=== PATIENT | female | born 1995 | race Caucasian/White ===

== ENCOUNTER 2020-11-23 00:04 | Emergency (ER) | payer BC ==
[~2020-11-23] VITALS: Ht 157.5 cm; Wt 57.2 kg
[2020-11-23] MEDS ORDERED: CLINDAMYCIN HC300 MG PO (02:49)
[2020-11-23] MEDS ORDERED: NAPROXEN375 MG PO (02:49)
[2020-11-23] MEDS ORDERED: INTESTINEX680 M1 PO (02:49)
[2020-11-23] MEDS ORDERED: ACETAMINOPHEN650 M2 (05:51)
== END 2020-11-23 04:47 | disposition home or self-care (01) ==
LOC: ER 00:04
DX: S90.562A Insect bite (nonvenomous), left ankle, initial encounter (principal); L03.116 Cellulitis of left lower limb; W57.XXXA Bitten or stung by nonvenomous insect and other nonvenomous arthropods, initial encounter; Y93.89 Activity, other specified; Y92.89 Other specified places as the place of occurrence of the external cause; Y99.8 Other external cause status